=== PATIENT | female | born 1940 | race Caucasian/White ===

== ENCOUNTER 2017-05-18 11:41 | Inpatient (IN) | payer MEDICARE ==
[~2017-05-18] VITALS: Ht 165.1 cm
[2017-05-18] MEDS ORDERED: LASIX40 MG PO (12:32)
[2017-05-18] MEDS ORDERED: EFFEXOR XR75 M1 PO (12:33)
[2017-05-18] MEDS ORDERED: Amaryl2 MG PO (12:34)
[2017-05-18] MEDS ORDERED: GLUCOTROL10 MG PO (12:34)
[2017-05-18] MEDS ORDERED: ATENOLOL AND CH1 TAB PO (12:35)
[2017-05-18] MEDS ORDERED: POTASSIUM CHLO10 MEQ PO (12:36)
[2017-05-18] MEDS ORDERED: RISPERDAL1 M1 PO (12:36)
[2017-05-18] MEDS ORDERED: ASPIRIN81 M1 PO (12:36)
[2017-05-18] MEDS ORDERED: METFORMIN1000 MG PO (12:37)
[2017-05-18] MEDS ORDERED: VITAMIN D31000 IU PO (12:37)
[2017-05-18] MEDS ORDERED: CIPRO500 MG PO (12:38)
[2017-05-18 15:12] VITALS: BP 122/54
[2017-05-18 15:58] VITALS: BP 122/54
[2017-05-18 17:49] LABS: BASO % 0.2 % (0.0-1.0); EOS # 0.2 10*3/uL (0.0-0.4); EOS % 1.5 % (1.0-4.0); HEMATOCRIT 38.4 % (37.0-47.0); HEMOGLOBIN 12.5 g/dl (12.0-16.0); LYMPH # 1.9 10*3/uL (1.3-4.4); LYMPH % 19.4 % (27.0-41.0); MEAN CELL VOLUME 88.3 fl (81.0-99.0); MEAN CORPUSCULAR HGB 28.7 pg (27.0-31.0); MEAN CORPUSCULAR HGB CONC 32.6 g/dl (33.0-37.0); MEAN PLATELET VOLUME 9.1 fl (9.6-12.3); MONO # 0.8 10*3/uL (0.1-1.0); MONO % 8.3 % (3.0-9.0); NEUT % 70.4 % (47.0-73.0); PLATELET COUNT AUTOMATED 283 10*3/uL (130-400); RED BLOOD COUNT 4.35 10*6/uL (4.10-5.10); RED CELL DISTRI WIDTH 13.5 % (0-14.5); WHITE BLOOD COUNT 9.9 10*3/uL (4.8-10.8)
[2017-05-18 18:05] LABS: ALBUMIN 3.5 gm/dl (3.1-4.5); BILIRUBIN, TOTAL 0.3 mg/dl (0.2-1.0); POTASSIUM 2.8 mmol/L (3.5-5.1); TOTAL PROTEIN 7.6 gm/dL (6.4-8.2)
[2017-05-18 18:08] LABS: HEMOGLOBIN A1c 8.4 % (4.8-5.6)
[2017-05-18 18:13] LABS: THYROID STIM HORMONE (HS) 0.493 uIU/ml (0.358-4.75)
[2017-05-18 18:35] LABS: FOLIC ACID 13.97 ng/mL (>5.38); VITAMIN D, 25-HYDROXY 36.3 ng/mL (30-100)
[2017-05-18 20:54] VITALS: BP 112/45
[2017-05-19 08:28] VITALS: BP 137/77
[2017-05-19 09:26] LABS: BILIRUBIN NEGATIVE (NEGATIVE); BLOOD NEGATIVE (NEGATIVE); CLARITY SL CLOUDY (CLEAR); COLOR YELLOW (YELLOW); GLUCOSE NEGATIVE (NEGATIVE); KETONE NEGATIVE (NEGATIVE); LEUKO ESTERASE 2+ (NEGATIVE); NITRITE NEGATIVE (NEGATIVE); PROTEIN NEGATIVE (NEGATIVE); SPECIFIC GRAVITY <= 1.005 (1.005-1.030); UROBILINOGEN 0.2 E.U./dl (0.2-1.0)
[2017-05-19 09:34] LABS: BACTERIA 2+; EPITHELIAL CELLS 15-20; URINE REFLEX COMMENT YES (NO); WBC 21-30 wbc/hpf (0-5)
[2017-05-19 09:35] LABS: YEAST 2+
[2017-05-19 09:48] LABS: URINE AMPHETAMINES < 1000 (1000ng/ml); URINE BARBITURATES < 200 (200ng/ml); URINE COCAINE < 300 (300ng/ml)
[2017-05-19 20:00] VITALS: BP 128/56
[2017-05-20 08:12] VITALS: BP 138/70
[2017-05-20 20:00] VITALS: BP 136/68
[2017-05-21 07:18] LABS: BUN 21 mg/dl (7-24); CARBON DIOXIDE 36 mmol/L (21-32); CHLORIDE 96 mmol/L (98-107); EST GLOM FILT AFRICAN AMERICAN > 60 ml/min; GLUCOSE 185 mg/dL (65-99); POTASSIUM 2.8 mmol/L (3.5-5.1); SODIUM 139 mmol/L (136-145)
[2017-05-21 08:04] VITALS: BP 123/62
[2017-05-21 20:10] VITALS: BP 124/65
[2017-05-22 06:52] LABS: BUN 23 mg/dl (7-24); CARBON DIOXIDE 34 mmol/L (21-32); CHLORIDE 100 mmol/L (98-107); EST GLOM FILT AFRICAN AMERICAN > 60 ml/min; GLUCOSE 168 mg/dL (65-99); POTASSIUM 3.1 mmol/L (3.5-5.1); SODIUM 141 mmol/L (136-145)
[2017-05-22 07:55] VITALS: BP 138/72
[2017-05-22 20:02] VITALS: BP 102/82
[2017-05-23 08:11] VITALS: BP 141/55
[2017-05-23 19:53] VITALS: BP 140/60
[2017-05-24 07:51] LABS: BUN 17 mg/dl (7-24); CARBON DIOXIDE 32 mmol/L (21-32); CHLORIDE 98 mmol/L (98-107); EST GLOM FILT AFRICAN AMERICAN > 60 ml/min; GLUCOSE 206 mg/dL (65-99); MAGNESIUM 1.5 mg/dL (1.5-2.1); POTASSIUM 2.5 mmol/L (3.5-5.1); SODIUM 141 mmol/L (136-145)
[2017-05-24 08:00] VITALS: BP 160/78
[2017-05-24 20:07] VITALS: BP 140/60
[2017-05-25 07:10] LABS: BASO % 0.3 % (0.0-1.0); EOS # 0.3 10*3/uL (0.0-0.4); EOS % 2.9 % (1.0-4.0); HEMATOCRIT 38.8 % (37.0-47.0); HEMOGLOBIN 12.9 g/dl (12.0-16.0); LYMPH # 3.3 10*3/uL (1.3-4.4); LYMPH % 34.9 % (27.0-41.0); MEAN CELL VOLUME 88.6 fl (81.0-99.0); MEAN CORPUSCULAR HGB 29.5 pg (27.0-31.0); MEAN CORPUSCULAR HGB CONC 33.2 g/dl (33.0-37.0); MEAN PLATELET VOLUME 9.8 fl (9.6-12.3); MONO # 0.7 10*3/uL (0.1-1.0); MONO % 7.8 % (3.0-9.0); NEUT # 5.1 10*3/uL (2.3-7.9); NEUT % 53.8 % (47.0-73.0); PLATELET COUNT AUTOMATED 322 10*3/uL (130-400); RED BLOOD COUNT 4.38 10*6/uL (4.10-5.10); RED CELL DISTRI WIDTH 13.7 % (0-14.5); WHITE BLOOD COUNT 9.4 10*3/uL (4.8-10.8)
[2017-05-25 07:29] LABS: BUN 14 mg/dl (7-24); CARBON DIOXIDE 30 mmol/L (21-32); CHLORIDE 100 mmol/L (98-107); EST GLOM FILT AFRICAN AMERICAN > 60 ml/min; GLUCOSE 210 mg/dL (65-99); SODIUM 142 mmol/L (136-145)
[2017-05-25 08:08] VITALS: BP 136/72
[2017-05-25 21:19] VITALS: BP 134/51
[2017-05-26 07:15] LABS: CHLORIDE 104 mmol/L (98-107); POTASSIUM 3.6 mmol/L (3.5-5.1); SODIUM 144 mmol/L (136-145)
[2017-05-26 07:20] LABS: BUN 17 mg/dl (7-24); CARBON DIOXIDE 29 mmol/L (21-32); EST GLOM FILT AFRICAN AMERICAN > 60 ml/min; GLUCOSE 172 mg/dL (65-99)
[2017-05-26 07:54] VITALS: BP 152/51
[2017-05-26 20:41] VITALS: BP 133/49
[2017-05-27 07:50] VITALS: BP 133/62
[2017-05-27 20:00] VITALS: BP 119/68
[2017-05-28 08:13] VITALS: BP 136/61
[2017-05-28 20:27] VITALS: BP 138/64
[2017-05-29 10:49] VITALS: BP 136/52
[2017-05-29 20:03] VITALS: BP 136/54
[2017-05-30 08:09] VITALS: BP 134/54
[2017-05-30 20:00] VITALS: BP 120/84
[2017-05-31 08:07] VITALS: BP 147/58
[2017-05-31 20:00] VITALS: BP 124/54
[2017-06-01 08:23] VITALS: BP 153/62
[2017-06-01] MEDS ORDERED: MIRTAZAPINE15 M2 PO (09:50)
[2017-06-01] MEDS ORDERED: INVEGA9 MG PO (09:50)
[2017-06-01] MEDS ORDERED: VRAYLAR6 MG PO (09:50)
[2017-06-01] MEDS ORDERED: KLOR-CON M2020 ME1 PO (11:05)
== END 2017-06-01 16:45 | disposition home or self-care (01) | DRG 885 ==
LOC: 3N 11:41
PROVIDERS: Hospitalist; Internal Medicine; Internal Medicine Nephrology; Psychiatry & Neurology Psychiatry
DX: F33.3 Major depressive disorder, recurrent, severe with psychotic symptoms (principal); R45.851 Suicidal ideations; I50.9 Heart failure, unspecified; I11.0 Hypertensive heart disease with heart failure; F41.9 Anxiety disorder, unspecified; I25.10 Atherosclerotic heart disease of native coronary artery without angina pectoris; K52.9 Noninfective gastroenteritis and colitis, unspecified; E11.9 Type 2 diabetes mellitus without complications; Z96.641 Presence of right artificial hip joint; R26.81 Unsteadiness on feet; Z88.0 Allergy status to penicillin; Z91.013 Allergy to seafood; Z91.09 Other allergy status, other than to drugs and biological substances; Z87.442 Personal history of urinary calculi; Z79.82 Long term (current) use of aspirin; Z79.899 Other long term (current) drug therapy; Z90.49 Acquired absence of other specified parts of digestive tract; Z90.710 Acquired absence of both cervix and uterus; Z72.89 Other problems related to lifestyle

== ENCOUNTER 2023-06-29 15:18 | Inpatient (IN) | payer OTHER ==
[~2023-06-29] VITALS: Ht 165.1 cm; Wt 90.1 kg
[~2023-06-29 15:18] MED LIST: ASPIRIN81 M1 PO; ATENOLOL AND CH1 TAB PO; Amaryl2 MG PO; CIPRO500 MG PO; EFFEXOR XR75 M1 PO; GLUCOTROL10 MG PO; INVEGA9 MG PO; KLOR-CON M2020 ME1 PO; LASIX40 MG PO; METFORMIN1000 MG PO; MIRTAZAPINE15 M2 PO; POTASSIUM CHLO10 MEQ PO; RISPERDAL1 M1 PO; VITAMIN D31000 IU PO; VRAYLAR6 MG PO
[2023-06-29 19:20] LABS: BILIRUBIN Negative (Negative); BLOOD Negative (Negative); CLARITY Clear (Clear); COLOR Yellow (Yellow); GLUCOSE Negative (Negative); KETONE Negative (Negative); LEUKO ESTERASE Negative (Negative); NITRITE Negative (Negative); UROBILINOGEN 0.2 E.U./dl (0.0-1.0)
[2023-06-29 19:33] LABS: BACTERIA TRACE; RBC 0-2 rbc/hpf (0-2); WBC 0-2 wbc/hpf (0-5)
[2023-06-29 20:00] VITALS: BP 170/82
[2023-06-29] MEDS ORDERED: COZAAR50 M1 PO (21:47)
[2023-06-29] MEDS ORDERED: NORVASC5 MG PO (21:47)
[2023-06-29] MEDS ORDERED: PANTOPRAZOLE SO40 MG PO (21:48)
[2023-06-29] MEDS ORDERED: INSULIN AS100 UNIT/3 SQ (21:51)
[2023-06-29 23:25] VITALS: BP 178/65
[2023-06-30 07:24] LABS: BASO % 0.3 % (0.0-1.0); EOS # 0.2 10*3/uL (0.0-0.4); EOS % 2.5 % (1.0-4.0); LYMPH # 1.5 10*3/uL (1.3-4.4); LYMPH % 21.4 % (27.0-41.0); MEAN CELL VOLUME 88.9 fl (81.0-99.0); MEAN CORPUSCULAR HGB CONC 33.8 g/dl (33.0-37.0); MEAN PLATELET VOLUME 9.2 fl (9.6-12.3); MONO # 0.6 10*3/uL (0.1-1.0); MONO % 8.7 % (3.0-9.0); NEUT # 4.5 10*3/uL (2.3-7.9); NEUT % 66.8 % (47.0-73.0); PLATELET COUNT AUTOMATED 198 10*3/uL (130-400); RED BLOOD COUNT 4.16 10*6/uL (4.10-5.10); RED CELL DISTRI WIDTH 12.7 % (0-14.5); WHITE BLOOD COUNT 6.8 10*3/uL (4.8-10.8)
[2023-06-30 07:48] LABS: ALKALINE PHOSPHATASE 129 U/L (46-116); BUN 8 mg/dl (9-23); CHLORIDE 103 mmol/L (98-107); CHOLESTEROL 179 mg/dL (<200); LDL CHOLESTEROL 111 mg/dL (9-159); POTASSIUM 3.4 mmol/L (3.4-5.1); SGPT/ALT 18 U/L (10-49); TOTAL PROTEIN 6.6 gm/dL (6.0-8.0); TRIGLYCERIDES 78 mg/dl (<150)
[2023-06-30 08:00] VITALS: BP 155/59
[2023-06-30 08:34] LABS: VITAMIN D, 25-HYDROXY 27.2 ng/mL (30-100)
[2023-06-30 20:00] VITALS: BP 141/53
[2023-07-01 07:42] VITALS: BP 142/70
[2023-07-01 20:00] VITALS: BP 126/66
[2023-07-02 09:16] VITALS: BP 163/59
[2023-07-02 20:00] VITALS: BP 119/84
[2023-07-03 07:41] VITALS: BP 168/82
[2023-07-03 20:00] VITALS: BP 132/66
[2023-07-04 07:37] VITALS: BP 137/67
[2023-07-04 20:00] VITALS: BP 158/82
[2023-07-05 08:02] VITALS: BP 176/87
[2023-07-05 20:00] VITALS: BP 108/69
[2023-07-06 07:22] VITALS: BP 135/74
[2023-07-06 20:00] VITALS: BP 141/59
[2023-07-07 07:10] VITALS: BP 147/60
[2023-07-07 20:00] VITALS: BP 140/64
[2023-07-08 07:33] VITALS: BP 150/70
[2023-07-08 20:00] VITALS: BP 139/52
[2023-07-09 07:00] VITALS: BP 138/67
[2023-07-09 20:00] VITALS: BP 138/67
[2023-07-10 08:00] VITALS: BP 162/74
[2023-07-10] MEDS ORDERED: LORAZEPAM0.5 M1 PO (10:16)
[2023-07-10] MEDS ORDERED: VITAMIN D3125 MC1 PO (10:16)
[2023-07-10] MEDS ORDERED: MIRTAZAPINE15 M2 PO (10:16)
[2023-07-10] MEDS ORDERED: HOMEMED PO (10:16)
[2023-07-10] MEDS ORDERED: INVEGA SUSTENN156 MG IM (10:16)
== END 2023-07-10 14:44 | disposition home or self-care (01) | DRG 885 ==
LOC: 3N 15:18
PROVIDERS: ADMIT Psychiatry & Neurology Psychiatry; ATTEND Psychiatry & Neurology Psychiatry
DX: F25.1 Schizoaffective disorder, depressive type (principal); I11.0 Hypertensive heart disease with heart failure; R45.851 Suicidal ideations; I50.9 Heart failure, unspecified; F41.9 Anxiety disorder, unspecified; E89.0 Postprocedural hypothyroidism; I25.10 Atherosclerotic heart disease of native coronary artery without angina pectoris; F32.A Depression, unspecified; Z96.641 Presence of right artificial hip joint; R73.9 Hyperglycemia, unspecified; E55.9 Vitamin D deficiency, unspecified; Z90.49 Acquired absence of other specified parts of digestive tract; Z90.710 Acquired absence of both cervix and uterus; Z87.442 Personal history of urinary calculi; Z95.5 Presence of coronary angioplasty implant and graft